=== PATIENT | female | born 1980 | race Two or more races ===

== ENCOUNTER 2016-07-24 15:36 | Emergency (ER) | payer OTHER ==
[~2016-07-24 15:36] MED LIST: ACULAR10 ML OP; ARTIFICIAL TEAR15 M3 OP; BACTRIM DS TABL1 TAB PO; BENADRYL; DARVOCET-N 1001 TAB; ERYTHROMYCIN O3.5 GM; FLEXERIL; FLEXERIL10 M1 PO; IBUPROFEN800 MG PO; KEFLEX PO; KETOPROFEN; LORTAB 5/500 TA1 TA2 PO; MEDROL4 MG/DOSE- PO; MYCOLOG II CREA15 GM TOP; NAPROXEN PO; NO MEDICATIONS; PATANOL5 ML; PATANOL5 ML OP; PREDNISONE; PREDNISONE PO; PREDNISONE1 MG PO; TOBREX5 ML OP; TYLOX 5/500 CAP1 CAP; VICODIN 5/500 T1 TAB; ZITHROMAX; ZYRTEC10 M2 PO
== END 2016-07-24 15:57 | disposition home or self-care (01) ==
LOC: CFTX 15:36
DX: J45.21 Mild intermittent asthma with (acute) exacerbation (principal); H10.10 Acute atopic conjunctivitis, unspecified eye; I10 Essential (primary) hypertension; Z98.51 Tubal ligation status; Z90.49 Acquired absence of other specified parts of digestive tract
CPT/HCPCS: 94640; 99282